=== PATIENT | female | born 1935 | race Caucasian/White ===

== ENCOUNTER → 2017-07-11 | Outpatient (CLI) | payer MEDICARE, BC ==
[~2017-07-11] MED LIST: ALDACTONE 25MG25 M1 PO; CLARITIN 1010 MG/TAB PO; COLESTID 1GM1 G PO; LANTUS SOLOS100 U/ML SQ; LIPITOR 40MG TA40 MG PO; NORCO 325 MG-51 TAB PO; PLAVIX 75MG TAB75 MG PO; PRILOTC; TOPROL XL 50MG50 MG PO
== END ==
LOC: COL.RAD 09:29
DX: K76.89 Other specified diseases of liver (principal); K52.9 Noninfective gastroenteritis and colitis, unspecified; Z95.0 Presence of cardiac pacemaker; Z90.49 Acquired absence of other specified parts of digestive tract; Z90.710 Acquired absence of both cervix and uterus
CPT/HCPCS: Q9967

== ENCOUNTER → 2017-07-22 | Outpatient (CLI) | payer MEDICARE, BC | LOC: COL.RAD 10:00 | DX: Z01.89 Encounter for other specified special examinations (principal) ==